=== PATIENT | female | born 2005 | race Two or more races ===

== ENCOUNTER 2024-10-31 21:09 | Emergency (ER) | payer MEDICAID, OTHER ==
[~2024-10-31] VITALS: Ht 154.9 cm; Wt 48.2 kg
--- NOTE | 2024-10-31 22:03 | ED.PDOC ---
History of Present Illness HPI Comments 19-year-old female with no reported PMHx presents with a chief complaint of anxiety x 2 hours ago. Patient states that she spontaneously got shaky, throat tightness, palpitations, and dizziness around 1900. Patient denies any diagnosis of anxiety or panic disorder. Patient mentions that she is currently not on any medications for anxiety. Patient notes that this has happened to her before in the past. Chief Complaint: Anxiety Time Seen by MD: 21:55 Reviewed Notes: Medications, Allergies Allergies: Coded Allergies: NO KNOWN ALLERGIES (Unverified , 10/31/24) Information Source: Patient Mode of Arrival: Ambulatory Severity: Moderate Timing: Hours Duration: Since onset Prehospital treatment: None Associated signs and symptoms REVIEW OF SYSTEMS: No fever, no chills, or fatigue HEENT: No sore throat, no earache, no congestion, no neck pain. Positive throat tightness Cardiac: No chest pain. Positive palpitations. Lungs: No shortness of breath, no cough. GI: No nausea, no vomiting, no diarrhea, no constipation, no abdominal pain : No dysuria, frequency, or urgency. No hematuria. Musculoskeletal: No joint pain , no joint swelling, no extremity edema. Skin: No rash, no itching. Neuro: Positive shakiness No headache, no dizziness, no weakness Psych: Positive Anxiety, no suicidal ideation Vital Signs Vital Signs Date Time Temp Pulse Resp B/P (MAP) Pulse Ox O2 Delivery O2 Flow Rate FiO2 11/01/24 00:43 68 10/31/24 22:55 20 98 Room Air* 0 21 10/31/24 22:51 98.3 137/92 (107) 98.3 Physical Exam General: Awake, alert and oriented. No acute distress. Skin: Skin in warm, dry and intact without rashes or lesions. HEENT: The head is normocephalic and atraumatic. Conjunctivae are clear without exudates or hemorrhage. Sclera is non-icteric. Neck: Normal range of motion. No JVD. Cardiac: Regular rate Respiratory: No signs of respiratory distress. No Stridor. Extremities: Upper and lower extremities are atraumatic in appearance without deformity. Neurological: The patient is awake, alert and oriented to person, place, and time with normal speech. Speech is clear. There is no facial asymmetry. Psychiatric: Appropriate mood and affect. Good judgement and insight. 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 Was a procedure done?: No Differential Dx Considerations may include: Anxiety, electrolyte imbalance, cardiac arrhythmia, metabolic disorder, hypothyroidism, drug overdose, other X-Ray, Labs, Meds, VS Vital Signs Date Time Temp Pulse Resp B/P (MAP) Pulse Ox O2 Delivery O2 Flow Rate FiO2 11/01/24 00:43 68 10/31/24 22:55 76 20 98 Room Air* 0 21 10/31/24 22:51 98.3 78 20 137/92 (107) 97 98.3 10/31/24 21:35 98.5 76 18 136/83 (100) 95 98.5 10/31/24 21:35 18 95 Room Air* 0 21 Lab Test 10/31/24 22:20 Range/Units White Blood Count 10.4 4.4-10.8 10^3/uL Red Blood Count 4.61 4.0-5.20 10^6/uL Hemoglobin 13.8 12.2-16.2 g/dL Hematocrit 40.9 36.0-46.0 % Mean Corpuscular Volume 88.6 80.0-100.0 fL Mean Corpuscular Hemoglobin 29.9 28.0-32.0 pg Mean Corpuscular Hemoglobin Concent 33.7 32.0-36.0 g/dL Red Cell Distribution Width 13.4 11.8-14.3 % Platelet Count 369 140-450 10^3/uL Mean Platelet Volume 8.3 6.9-10.8 fL Neutrophils (%) (Auto) 67.0 37.0-80.0 % Lymphocytes (%) (Auto) 26.2 10.0-50.0 % Monocytes (%) (Auto) 5.9 0.0-12.0 % Eosinophils (%) (Auto) 0.7 0.0-7.0 % Basophils (%) (Auto) 0.2 0.0-2.0 % Neutrophils # (Auto) 7.0 1.6-8.6 10 ^3/uL Lymphocytes # (Auto) 2.7 0.4-5.4 10 ^3/uL Monocytes # (Auto) 0.6 0-1.3 10 ^3/uL Eosinophils # (Auto) 0.1 0-0.8 10 ^3/uL Basophils # (Auto) 0 0-0.2 10 ^3/uL Nucleated Red Blood Cells 0.0 % Sodium Level 140 136-145 mmol/L Potassium Level 4.1 3.5-5.1 mmol/L Chloride Level 105 98-107 mmol/L Carbon Dioxide Level 24 20-31 mmol/L Anion Gap 11 5-15 Blood Urea Nitrogen < 5 L 9-23 mg/dL Creatinine 0.73 0.550-1.02 mg/dL Glomerular Filtration Rate Calc 121 >90 mL/min BUN/Creatinine Ratio 6.8 L 10.0-20.0 Serum Glucose 92 74-106 mg/dL Calcium Level 10.8 H 8.7-10.4 mg/dL Total Bilirubin 0.5 0.2-1.0 mg/dL Aspartate Amino Transferase (AST) 36 13-40 U/L Alanine Aminotransferase (ALT) 13 7-40 U/L Alkaline Phosphatase 86 46-116 U/L Troponin I High Sensitivity < 3 L </=34 ng/L Total Protein 8.3 H 5.7-8.2 g/dL Albumin 5.7 H 3.2-4.8 g/dL Thyroid Stimulating Hormone (TSH) 1.09 0.55-4.78 uIU/mL Current Medications Medications (Trade) Dose Ordered Sig/Edna Route Start Time Stop Time Status Last Admin Hydroxyzine Pamoate (Vistaril Oral) 25 mg ONCE ONCE PO 10/31/24 22:15 10/31/24 22:16 DC 10/31/24 22:54 Time of 1ST Reevaluation: 22:25 Reevaluation 1ST: Unchanged Patient Education/Counseling: Diagnosis, Treatment, Prognosis Family Education/Counseling: No Family Present Departure 1 Departure Time of Disposition: 23:33 Impression: Primary Impression: Palpitations Disposition: HOME / SELF CARE / HOMELESS Condition: Stable Additional Instructions: ED DISCHARGE INSTRUCTIONS Instructions: Please read all instructions provided in this packet carefully. Although you have been discharged from the Emergency Department, this does not mean that you have a "clean bill of health". No definitive diagnosis for your symptoms has been made today. It is possible that you are in the process of developing a serious illness. This is why you must return to the ED without fail if any new or worsening symptoms (especially if your symptoms include chest pain, trouble breathing, abdominal pain, fever, headache, confusion, trouble seeing, or trouble walking) It is also very important that you see a primary care doctor within the next 3-5 days to follow up. If you are unable to get an appointment, return to the ED for re-evaluation. Comments 19-year-old female who presents to the emergency department with symptoms of shakiness, dizziness, palpitations, throat tightness which occurred approximately 2 hours prior to her arrival. Symptoms resolved as move discharge. Lab results reviewed and not urgently actionable. Patient advised to follow up with the primary care provider for further treatment and josse luation. ----- I reviewed the following notes from the pt's past medical encounters: N/A The following tests were ordered, and results were reviewed by me: (See diagnostic results section) The following test were independently interpreted by me: N/A Additional information was gathered from interviewing the following independent historians: (N/A) I reviewed and agreed with the following test results read by other providers: N/A I discussed treatments and results with medical personnel and: N/A Decision regarding hospitalization or escalation of hospital level of care: Risks and benefits of admission for further treatment of patient's condition was considered however due to patient's stable condition patient will be discharged to follow up closely or return to care for worsening of condition or inability to follow up. Critical Care Note Critical Care Time?: No Stability Stability form required: No Heart Score Heart Score: Heart Score Response (Comments) Value History N/A 0 EKG N/A 0 Age N/A 0 Risk Factors N/A 0 Troponin N/A 0 Total 0 I personally scribed for DANO HARRIS MD ([email or web address]) on 10/31/24 at 22:03. Electronically submitted by Van Guadarrama ([email or web address]). DANO HARRIS MD Oct 31, 2024 22:03
[2024-10-31 22:31] LABS: Basophils # (auto) 0 10 ^3/uL (0-0.2); Basophils % (auto) 0.2 % (0.0-2.0); Eosinophils # (auto) 0.1 10 ^3/uL (0-0.8); Eosinophils % (auto) 0.7 % (0.0-7.0); Hematocrit 40.9 % (36.0-46.0); Hemoglobin 13.8 g/dL (12.2-16.2); Lymphocytes # (auto) 2.7 10 ^3/uL (0.4-5.4); Lymphocytes % (auto) 26.2 % (10.0-50.0); Mean Corpuscular Hemoglobin 29.9 pg (28.0-32.0); Mean Corpuscular Hgb Conc. 33.7 g/dL (32.0-36.0); Mean Corpuscular Volume 88.6 fL (80.0-100.0); Monocytes # (auto) 0.6 10 ^3/uL (0-1.3); Monocytes % (auto) 5.9 % (0.0-12.0); Platelet Count (auto) 369 10^3/uL (140-450); Red Blood Cells 4.61 10^6/uL (4.0-5.20); Red Cell Distribution Width 13.4 % (11.8-14.3); White Blood Cell 10.4 10^3/uL (4.4-10.8)
[2024-10-31 22:48] LABS: Alanine Aminotransferase 13 U/L (7-40); Alkaline Phosphatase 86 U/L (46-116); Anion Gap 11 (5-15); Aspartate Aminotransferase 36 U/L (13-40); Carbon Dioxide 24 mmol/L (20-31); Chloride 105 mmol/L (98-107); Glucose 92 mg/dL (74-106); Potassium 4.1 mmol/L (3.5-5.1); Sodium 140 mmol/L (136-145)
[2024-10-31 22:49] LABS: Albumin 5.7 g/dL (3.2-4.8); BUN/Creatinine Ratio 6.8 (10.0-20.0); Bilirubin, Total 0.5 mg/dL (0.2-1.0); Blood Urea Nitrogen < 5 mg/dL (9-23); Calcium 10.8 mg/dL (8.7-10.4); Total Protein 8.3 g/dL (5.7-8.2)
[2024-10-31] MEDS: hydrOXYzine 25 MG TAB or CAP PO ONE (22:54)
[2024-10-31 22:55] VITALS: PULSE 76; RESP 20; O2SAT 98
[2024-11-01 02:13] VITALS: BP 136/99; PULSE 69; RESP 18; TEMP 98; O2SAT 95
--- NOTE | 2024-11-01 07:30 | ECG ---
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
== END 2024-11-01 02:16 | disposition home or self-care (01) ==
LOC: ER 21:09
DX: R00.2 Palpitations (principal); F41.9 Anxiety disorder, unspecified
CPT/HCPCS: 36415; 80053; 84443; 84484; 85025; 93005